=== PATIENT | female | born 1985 | race African-American/Black ===

== ENCOUNTER 2017-10-31 08:24 | Emergency (ER) | payer OTHER ==
[2017-10-31] MEDS ORDERED: DIAZEPAM INJ 10 MG/2 ML DISP.SYRIN IV ONE (08:53)
[2017-10-31] MEDS ORDERED: KETOROLAC TROMETHAMINE 60 MG/2 ML SDV IM ONE (08:53)
[2017-10-31] MEDS ORDERED: DIAZEPAM INJ 10 MG/2 ML DISP.SYRIN IM ONE (08:59)
--- NOTE | 2017-10-31 09:48 | ER Document Report ---
ED General - General Chief Complaint: Back Pain Stated Complaint: HEADACHE Time Seen by Provider: 10/31/17 08:42 Mode of Arrival: Ambulatory Information source: Patient Notes: 32-year-old female presents with complaints of low back pain that is causing her to have headaches. Patient notes injury occurred at work where she struck her low back and since then has been having spasms that radiate up her back to the back of her neck because her head to hurt. Patient denies any fevers chills denies any nausea vomiting or diarrhea denies any loss of bowel or bladder function denies any cauda equina concerns denies any neurological deficits TRAVEL OUTSIDE OF THE [place] IN LAST 30 DAYS: No - HPI Onset: Last week Onset/Duration: Persistent Quality of pain: Achy, Cramping Severity: Mild Pain Level: 1 Associated symptoms: Body/muscle aches, Headache Exacerbated by: Movement Relieved by: Denies Similar symptoms previously: Yes Recently seen / treated by doctor: Yes - Related Data Allergies/Adverse Reactions: latex [Latex] Allergy (Mild, Verified 10/25/17 14:44) swelling, redness, itching metronidazole [From Flagyl] Allergy (Mild, Verified 10/25/17 14:44) swelling, redness, itching Sulfa (Sulfonamide Antibiotics) Allergy (Mild, Verified 10/25/17 14:44) swelling, redness, itching codeine [Codeine] Allergy (Verified 10/25/17 14:44) swelling, redness, itching Metronidazole HCl [From Flagyl] Allergy (Verified 10/25/17 14:44) Past Medical History - Social History Smoking Status: Never Smoker Cigarette use (# per day): No Chew tobacco use (# tins/day): No Smoking Education Provided: No Frequency of alcohol use: None Drug Abuse: None Family History: Arthritis, CVA, DM, Hypertension, Malignancy, Thyroid Disfunction. denies: CAD, COPD, Hyperlipidemia Patient has suicidal ideation: No Patient has homicidal ideation: No Pulmonary Medical History: Reports: Hx Bronchitis Neurological Medical History: Denies: Hx Seizures Endocrine Medical History: Reports: Hx Hyperthyroidism - STATES GOES BACK AN FORTH FROM HYPO/HYPER, Hx Hypothyroidism Renal/ Medical History: Denies: Hx Kidney Stones, Hx Peritoneal Dialysis Psychiatric Medical History: Reports: Hx Bipolar Disorder, Hx Depression Denies: Hx Post Traumatic Stress Disorder, Hx Schizophrenia Infectious Medical History: Denies: Hx HIV Past Surgical History: Reports: Hx Section - x1, Hx Tubal Ligation. Denies: Hx Hysterectomy, Hx Pacemaker - Immunizations Immunizations up to date: Yes Hx Diphtheria, Pertussis, Tetanus Vaccination: Yes Review of Systems - Review of Systems Notes: REVIEW OF SYSTEMS: CONSTITUTIONAL : Denies fever, chills, or sweats. Denies recent illness. EENT: Denies eye, ear, throat, or mouth pain or symptoms. Denies nasal or sinus congestion or discharge. Denies throat, tongue, or mouth swelling or difficulty swallowing. CARDIOVASCULAR: Denies chest pain. Denies palpitations or racing or irregular heart beat. Denies ankle edema. RESPIRATORY: Denies cough, cold, or chest congestion. Denies shortness of breath, difficulty breathing, or wheezing. GASTROINTESTINAL: Denies abdominal pain or distention. Denies nausea, vomiting , or diarrhea. Denies blood in vomitus, stools, or per rectum. Denies black, tarry stools. Denies constipation. GENITOURINARY: Denies difficulty urinating, painful urination, burning, frequency, blood in urine, or discharge. FEMALE GENITOURINARY: Denies vaginal bleeding, heavy or abnormal periods, irregular periods. Denies vaginal discharge or odor. MUSCULOSKELETAL: Admits low back pain. SKIN: Denies rash, lesions or sores. HEMATOLOGIC : Denies easy bruising or bleeding. LYMPHATIC: Denies swollen, enlarged glands. NEUROLOGICAL: Admits to headache PSYCHIATRIC: Denies anxiety or stress. Denies depression, suicidal ideation, or homicidal ideation. ALL OTHER SYSTEMS REVIEWED AND NEGATIVE. PHYSICAL EXAMINATION: GENERAL: Well-appearing, well-nourished and in no acute distress. HEAD: Atraumatic, normocephalic. EYES: Pupils equal round and reactive to light, extraocular movements intact, conjunctiva are normal. ENT: Nares patent, oropharynx clear without exudates. Moist mucous membranes. NECK: Normal range of motion, supple without lymphadenopathy LUNGS: Breath sounds clear to auscultation bilaterally and equal. No wheezes rales or rhonchi. HEART: Regular rate and rhythm without murmurs ABDOMEN: Soft, nontender, nondistended abdomen. No guarding, no rebound. No masses appreciated. Female : deferred Musculoskeletal: Normal range of motion, no pitting or edema. No cyanosis. Generalized tenderness in the L1-L3 region upon palpation and radiates all the way to the cervical region NEUROLOGICAL: Cranial nerves grossly intact. Normal speech, normal gait. Normal sensory, motor exams PSYCH: Normal mood, normal affect. SKIN: Warm, Dry, normal turgor, no rashes or lesions noted. Dictation was performed using [employer] voice recognition software Physical Exam - Vital signs Vitals: Temp Pulse Resp BP Pulse Ox 97.8 F 73 14 102/58 L 100 10/31/17 08:38 10/31/17 08:38 10/31/17 08:38 10/31/17 08:38 10/31/17 08:38 Course - Re-evaluation Re-evalutation: 10/31/17 16:01 Patient's examination is quite benign, has no neurological deficits has no signs of intracranial bleed or hemorrhage. It appears that this is all musculoskeletal in nature and that the spasms are causing tension of her paraspinal cervical region. Patient was therefore given Valium and Toradol and on reevaluation her symptoms have completely resolved and she is in no distress at all. Patient is very happy with her care and wishes to be discharged home No cauda equina concerns noted After performing a Medical Screening Examination, I estimate there is LOW risk for ACUTE GLAUCOMA, TEMPORAL ARTERITIS, MENINGITIS, INCRANIAL HEMORRHAGE, or ISCHEMIC STROKE thus I consider the discharge disposition reasonable. I have reevaluated this patient multiple times and no significant life threatening changes are noted. The patient and I have discussed the diagnosis and risks, and we agree with discharging home with close follow-up with the understanding that symptoms and presentations can change. We also discussed returning to the Emergency Department immediately if new or worsening symptoms occur. We have discussed the symptoms which are most concerning (e.g., changing or worsening symptoms, new numbness or weakness, vomiting, fever) that necessitate immediate return. - Vital Signs Vital signs: Temp Pulse Resp BP Pulse Ox 97.7 F 62 13 102/59 L 100 10/31/17 09:56 10/31/17 09:56 10/31/17 09:56 10/31/17 09:56 10/31/17 09:56 Discharge - Discharge Clinical Impression: Muscle spasm, Neck pain Headache Qualifiers: Headache type: unspecified Headache chronicity pattern: chronic headache Intractability: not intractable Qualified Code(s): R51 - Headache Condition: Stable Disposition: HOME, SELF-CARE Instructions: Low Back Pain ([facility]), Muscle Strain ([facility]) Prescriptions: Ketorolac Tromethamine [Toradol 10 mg Tablet] 10 mg PO Q8HP PRN #9 tablet PRN Reason: Diazepam [Valium 5 mg Tablet] 5 mg PO QIDP PRN #15 tablet PRN Reason: Forms: Parent Work Note, Return to Work Referrals: AURA DIGGS MD [Primary Care Provider] - Follow up tomorrow
[2017-10-31 10:11] VITALS: BP 102/59
== END 2017-10-31 10:05 | disposition home or self-care (01) ==
LOC: ER 08:24
DX: M62.838 Other muscle spasm (principal); M54.2 Cervicalgia; R51 Headache; M54.5 Low back pain; M54.9 Dorsalgia, unspecified
CPT/HCPCS: 99283; 96372; J3360; J1885

== ENCOUNTER 2017-12-29 09:56 | Emergency (ER) | payer BC, OTHER ==
[2017-12-29 10:02] VITALS: BP 125/77
[2017-12-29] MEDS ORDERED: IBUPROFEN 600 MG TABLET PO ONE (10:13)
[2017-12-29] MEDS ORDERED: LORATADINE 10 MG TABLET PO ONE (10:13)
[2017-12-29] MEDS ORDERED: GUAIFENESIN 600 MG TABLET.SA PO ONE (10:13)
[2017-12-29] MEDS ORDERED: PSEUDOEPHEDRINE HCL 30 MG TABLET PO ONE (10:13)
--- NOTE | 2017-12-29 10:19 | ER Document Report ---
ED ENT - General Chief Complaint: Sore Throat Stated Complaint: SORE THROAT, EAR PAIN, HEADACHE Time Seen by Provider: 12/29/17 10:06 Mode of Arrival: Ambulatory Information source: Patient Notes: 32-year-old female presented ED for complaint of severe sore throat 2 weeks with cough congestion ear pain and denies fever. Patient is alert and oriented , pupils equal and react to light, speaking in full sentences, respirations regular and unlabored, patient walks with a even steady gait. TRAVEL OUTSIDE OF THE [place] IN LAST 30 DAYS: No - HPI Patient complains to provider of: Ear problem, Nose problem, Throat problem Onset: Other - 2 weeks Onset/Duration: Persistent - Related Data Allergies/Adverse Reactions: latex [Latex] Allergy (Mild, Verified 12/29/17 09:57) swelling, redness, itching metronidazole [From Flagyl] Allergy (Mild, Verified 12/29/17 09:57) swelling, redness, itching Sulfa (Sulfonamide Antibiotics) Allergy (Mild, Verified 12/29/17 09:57) swelling, redness, itching codeine [Codeine] Allergy (Verified 12/29/17 09:57) swelling, redness, itching Metronidazole HCl [From Flagyl] Allergy (Verified 12/29/17 09:57) Past Medical History - General Information source: Patient - Social History Smoking Status: Never Smoker Cigarette use (# per day): No Chew tobacco use (# tins/day): No Smoking Education Provided: No Frequency of alcohol use: None Drug Abuse: None Family History: Arthritis, CVA, DM, Hypertension, Malignancy, Thyroid Disfunction. denies: CAD, COPD, Hyperlipidemia Patient has suicidal ideation: No Patient has homicidal ideation: No - Medical History Medical History: Other - Anemia - Past Medical History Cardiac Medical History: Reports: None Pulmonary Medical History: Reports: Hx Bronchitis EENT Medical History: Reports: None Neurological Medical History: Reports: None Endocrine Medical History: Reports: Hx Hyperthyroidism - STATES GOES BACK AN FORTH FROM HYPO/HYPER, Hx Hypothyroidism Renal/ Medical History: Reports: None Malignancy Medical History: Reports: None GI Medical History: Reports: None Musculoskeltal Medical History: Reports None Skin Medical History: Reports None Psychiatric Medical History: Reports: Hx Bipolar Disorder, Hx Depression Traumatic Medical History: Reports: None Infectious Medical History: Reports: None Past Surgical History: Reports: Hx Section - 2, Hx Tubal Ligation, Other - Lipoma removed - Immunizations Immunizations up to date: Yes Hx Diphtheria, Pertussis, Tetanus Vaccination: Yes Review of Systems - Review of Systems Constitutional: Recent illness EENT: Ear pain, Nose discharge, Sinus pressure, Sinus discharge, Throat pain Cardiovascular: No symptoms reported Respiratory: Cough Gastrointestinal: No symptoms reported Genitourinary: No symptoms reported Female Genitourinary: No symptoms reported Musculoskeletal: No symptoms reported Skin: No symptoms reported Hematologic/Lymphatic: No symptoms reported Neurological/Psychological: No symptoms reported Physical Exam - Vital signs Vitals: Temp Pulse Resp BP Pulse Ox 99.0 F 88 16 125/77 99 12/29/17 10:01 12/29/17 10:01 12/29/17 10:01 12/29/17 10:01 12/29/17 10:01 Interpretation: Normal - General General appearance: Appears well, Alert - HEENT Head: Normocephalic, Atraumatic Eyes: Normal Pupils: PERRL Ears: Normal External canal: Normal Tympanic membrane: Normal Sinus: Normal Nasal: Purulent discharge, Swelling Mouth/Lips: Normal Mucous membranes: Normal Pharynx: Post nasal drainage. No: Erythema, Exudate, Tonsillar hypertrophy Neck: Normal - Respiratory Respiratory status: No respiratory distress Chest status: Nontender Breath sounds: Nonproductive cough Chest palpation: Normal - Cardiovascular Rhythm: Regular Heart sounds: Normal auscultation Murmur: No - Abdominal Inspection: Normal Distension: No distension Bowel sounds: Normal Tenderness: Nontender Organomegaly: No organomegaly - Back Back: Normal, Nontender - Extremities General upper extremity: Normal inspection, Nontender, Normal color, Normal ROM , Normal temperature General lower extremity: Normal inspection, Nontender, Normal color, Normal ROM , Normal temperature, Normal weight bearing. No: Randy's sign - Neurological Neuro grossly intact: Yes Cognition: Normal Orientation: AAOx4 Brooks Coma Scale Eye Opening: Spontaneous Tyrese Coma Scale Verbal: Oriented Brooks Coma Scale Motor: Obeys Commands Tyrese Coma Scale Total: 15 Speech: Normal Motor strength normal: LUE, RUE, LLE, RLE Sensory: Normal - Psychological Associated symptoms: Normal affect, Normal mood - Skin Skin Temperature: Warm Skin Moisture: Dry Skin Color: Normal Course - Re-evaluation Re-evalutation: 12/29/17 10:42 Patient was seen for sore throat ear pain nasal congestion and cough. Her signs and symptoms were consistent with a upper respiratory infection. Patient was given instructions on upper respiratory infection care and treatment and instructed to follow-up with her primary doctor. After performing a Medical Screening Examination, I estimate there is LOW risk for ACUTE CORONARY SYNDROME , RESPIRATORY FAILURE, SEPSIS OR MENINGITIS, thus I consider the discharge disposition reasonable. I have reevaluated this patient multiple times and no significant life threatening changes are noted. The patient and I have discussed the diagnosis and risks, and we agree with discharging home with close follow-up. We also discussed returning to the Emergency Department immediately if new or worsening symptoms occur. We have discussed the symptoms which are most concerning (e.g., changing or worsening pain, trouble swallowing or breathing, neck stiffness, fever) that necessitate immediate return. - Vital Signs Vital signs: Temp Pulse Resp BP Pulse Ox 99.0 F 88 16 125/77 99 12/29/17 10:03 12/29/17 10:03 12/29/17 10:03 12/29/17 10:03 12/29/17 10:03 Discharge - Discharge Clinical Impression: Viral sore throat URI (upper respiratory infection) Qualifiers: URI type: unspecified URI Qualified Code(s): J06.9 - Acute upper respiratory infection, unspecified Otalgia Qualifiers: Laterality: bilateral Qualified Code(s): H92.03 - Otalgia, bilateral Condition: Stable Disposition: HOME, SELF-CARE Additional Instructions: SORE THROAT: Sore throats may be caused by viruses, bacteria, or fungi. Most are due to a virus, and must get better on their own. Bacterial sore throats, particularly those due to "strep," need treatment with antibiotics. If an antibiotic is prescribed, be sure to take the medication for a full 10 days. Failure to take the antibiotic can result in complications such as rheumatic fever. Sometimes, an injection of antibiotics is given instead of pills or liquid. This single "shot" is equal in effectiveness to the oral medication. To relieve symptoms, take acetaminophen for pain. Sip clear liquids frequently, or eat popsicles or ice chips. Anesthetic sprays or lozenges may help. Make sure the air in the room is not too dry. Avoid using decongestants or antihistamines. Call the doctor if there is no improvement in two days, or if you have difficulty breathing, increasing throat pain, high fever, rash, or frequent vomiting. UPPER RESPIRATORY ILLNESS: You have a viral infection of the respiratory passages -- a "cold." This common infection causes nasal congestion, drainage, and often sore throat and cough. It is highly contagious. The disease usually lasts about 10 to 14 days. There is no "cure" for the viral infection -- it must run its course. If there is a complication, such as bacterial infection in the nose, sinuses, middle ear, or bronchial tubes, antibiotics may be required. The antibiotics won't affect the virus. Drink plenty of fluids. A humidifier may help. An expectorant medication or decongestant may make you more comfortable. Use acetaminophen or ibuprofen for fever or aches. See the doctor if fever persists over two days, if there is any significant worsening of your symptoms, or if you simply fail to improve as expected. DECONGESTANT MEDICATION: A decongestant medicine has been suggested. Often this medicine is combined in the same tablet with an antihistamine or expectorant. This type of medicine is helpful in treating a bad cold or sinus condition, as well as in treatment of the nasal congestion of hay fever. It is not of much benefit for lung infections. Decongestant medicines are related to stimulants. They can cause an increase in blood pressure and heart rate. Persons with heart disease and high blood pressure should not take decongestants without discussing this with the physician. If you develop palpitations, chest pain, headache, or tremors, stop the medicine and consult your physician. COUGH-SUPPRESSANT & EXPECTORANT MEDICATION: You are to use a cough medication as needed for relief of symptoms. This medicine is a combination of an expectorant (to make the mucous thinner and more easily "coughed up") and a cough suppressant (to reduce the frequency of coughing). The cough-suppressant medicine is related to narcotics. You may experience mild nausea and sleepiness. Some patients who are very sensitive to narcotics may have stomach pain from this medicine. Taking the medicine with food reduces these side effects. Do not drive or work with machinery until you know how this medicine affects you. The expectorant should have no side effects. Iodine-containing expectorants (such as organidin) should not be taken by persons with active thyroid disease unless approved by your doctor. Call the doctor if you develop shortness of breath, hives, rash, itching, lightheadedness, or severe nausea and vomiting. USE OF ACETAMINOPHEN (Tylenol): Acetaminophen may be taken for pain relief or fever control. It's much safer than aspirin, offering a wider range of "safe" dosages. It is safe during . Some brand names are Tylenol, Panadol, Datril, Anacin 3, Tempra, and Liquiprin. Acetaminophen can be repeated every four hours. The following are maximum recommended dosages: >89 pounds or adults 650 mg to 900 mg Acetaminophen can be repeated every four hours. Maximum dose not to exceed 4000 mg a day. Ibuprofen Ibuprofen is an excellent, safe drug for pain control. In addition, it has potent antiinflammatory effects which are beneficial, especially in the treatment of injuries, arthritis, or tendonitis. It's best to take ibuprofen with food. Persons with ulcer disease or allergy to aspirin should notify their physician of this before taking ibuprofen. Take the medication exactly as prescribed. Don't take additional doses unless instructed to do so by your doctor. If you develop wheezing, shortness of breath, hives, faintness, stomach pain, vomiting, or dark black stools, return for re-evaluation at once. You were treated with Claritin 10 mg, Sudafed 30 mg, Mucinex 600 mg, and ibuprofen 600 mg in the emergency room. These are all [id number] medications except for the ibuprofen you can take 3 of the [id number] ibuprofen. Another medication that will help you is Flonase you can buy that [id number] use it according to the box instructions. Something to help you with your sore throat is salt and soda solution Salt and soda solution 1 quart of water 1 tablespoon of salt 1 teaspoon of baking soda Mixed 3 ingredients together and boil for 1 minute Placed in a covered quart jar Use 1/2 ounce of cold solution to gargle 3 times a day FOLLOW-UP CARE: If you have been referred to a physician for follow-up care, call the physician s office for an appointment as you were instructed or within the next two days. If you experience worsening or a significant change in your symptoms, notify the physician immediately or return to the Emergency Department at any time for re-evaluation. Referrals: AURA DIGGS MD [Primary Care Provider] - Follow up as needed
== END 2017-12-29 10:28 | disposition home or self-care (01) ==
LOC: ER 09:56
DX: J06.9 Acute upper respiratory infection, unspecified (principal); J02.9 Acute pharyngitis, unspecified; B97.89 Other viral agents as the cause of diseases classified elsewhere; H92.03 Otalgia, bilateral; R05 Cough; R09.81 Nasal congestion
CPT/HCPCS: 99282

== ENCOUNTER 2018-06-28 08:15 | Emergency (ER) | payer BC, MEDICAID ==
--- NOTE | 2018-06-28 09:45 | ER Document Report ---
ED General - General Mode of Arrival: Ambulatory Information source: Patient TRAVEL OUTSIDE OF THE [place] IN LAST 30 DAYS: No <ЕКАТЕРИНА WHARTON - Last Filed: 06/28/18 09:37> <LAVERNE SADLER - Last Filed: 06/28/18 12:04> - General Chief Complaint: Vaginal Bleeding Stated Complaint: VAGINAL BLEEDING Time Seen by Provider: 06/28/18 09:30 Notes: Patient is a 32 year old female presenting to the emergency department complaining of a multitude of symptoms including vaginal bleeding, chest pain, shortness of breath and weakness. Patient's primary concern is her vaginal bleeding. She states she normally has a regular period 2x a month. She states her last cycle lasted for 1 week and 4 days and returned after 1 week and 5 days. She states her period would normally return after 2 weeks. She states the vaginal bleeding is heavy and describes it as coming out as gushing. Patient also complains of skin break outs, a hard lump behind left ear, loosing hair, weight gain without eating, abdominal tenderness, "migraines", foul taste when eating, memory loss, daydreaming and an inability to sleep over the last 2 months. Patient's PCP is Dr. Diggs. (ЕКАТЕРИНА WHARTON) - Related Data Allergies/Adverse Reactions: latex [Latex] Allergy (Mild, Verified 12/29/17 09:57) swelling, redness, itching metronidazole [From Flagyl] Allergy (Mild, Verified 12/29/17 09:57) swelling, redness, itching Sulfa (Sulfonamide Antibiotics) Allergy (Mild, Verified 12/29/17 09:57) swelling, redness, itching codeine [Codeine] Allergy (Verified 12/29/17 09:57) swelling, redness, itching Metronidazole HCl [From Flagyl] Allergy (Verified 12/29/17 09:57) Past Medical History - General Information source: Patient Last Menstrual Period: 06/27/18 - Social History Smoking Status: Former Smoker Chew tobacco use (# tins/day): No Frequency of alcohol use: None Drug Abuse: None Family History: Arthritis, CVA, DM, Hypertension, Malignancy, Thyroid Disfunction Patient has suicidal ideation: No Patient has homicidal ideation: No Pulmonary Medical History: Reports: Hx Bronchitis Endocrine Medical History: Reports: Hx Hyperthyroidism - STATES GOES BACK [place] FORTH FROM HYPO[place]HY[place], Hx Hypothyroidism Psychiatric Medical History: Reports: Hx Bipolar Disorder, Hx Depression Past Surgical History: Reports: Hx Section - 2, Hx Tubal Ligation, Other - Lipoma removed - Immunizations Immunizations up to date: Yes Hx Diphtheria, Pertussis, Tetanus Vaccination: Yes <ЕКАТЕРИНА WHARTON - Last Filed: 06/28/18 09:37> Review of Systems - Review of Systems Constitutional: See HPI, Weakness EENT: No symptoms reported Cardiovascular: See HPI, Chest pain Respiratory: See HPI, Short of breath Gastrointestinal: See HPI Genitourinary: No symptoms reported Female Genitourinary: No symptoms reported Musculoskeletal: See HPI Skin: See HPI Hematologic/Lymphatic: No symptoms reported Neurological/Psychological: No symptoms reported -: Yes All other systems reviewed and negative <ЕКАТЕРИНА WHARTON - Last Filed: 06/28/18 09:37> Physical Exam <ЕКАТЕРИНА WHARTON - Last Filed: 06/28/18 09:37> <LAVERNE SADLER - Last Filed: 06/28/18 12:04> - Vital signs Vitals: Temp Pulse Resp BP Pulse Ox 99.1 F 74 14 108/66 98 06/28/18 08:30 06/28/18 08:30 06/28/18 08:30 06/28/18 08:30 06/28/18 08:30 - Notes Notes: GENERAL: Alert, interacts well. No acute distress. HEAD: Normocephalic, atraumatic. EYES: Pupils equal, round, and reactive to light. Extraocular movements intact. ENT: Oral mucosa moist, tongue midline. NECK: Full range of motion. Supple. Trachea midline. LUNGS: Clear to auscultation bilaterally, no wheezes, rales, or rhonchi. No respiratory distress. HEART: Regular rate and rhythm. No murmurs, gallops, or rubs. ABDOMEN: Soft, non-tender. Non-distended. Bowel sounds present in all 4 quadrants. EXTREMITIES: Moves all 4 extremities spontaneously. NEUROLOGICAL: Alert and oriented x3. Normal speech. PSYCH: Normal affect, normal mood. SKIN: Warm, dry, normal turgor. No rashes or lesions noted. (ЕКАТЕРИНА WHARTON) Course - Laboratory Result Diagrams: 06/28/18 09:47 06/28/18 09:47 <LAVERNE SADLER - Last Filed: 06/28/18 12:04> - Vital Signs Vital signs: Temp Pulse Resp BP Pulse Ox 99.1 F 74 14 108/66 98 06/28/18 08:30 06/28/18 08:30 06/28/18 08:30 06/28/18 08:30 06/28/18 08:30 - Laboratory Laboratory results interpreted by me: 06/28/18 09:21 Urine Blood LARGE H Discharge <ЕКАТЕРИНА WHARTON - Last Filed: 06/28/18 09:37> <LAVERNE SADLER - Last Filed: 06/28/18 12:04> - Discharge Clinical Impression: Dysfunctional uterine bleeding Condition: Stable Disposition: HOME, SELF-CARE Additional Instructions: Dysfunctional Uterine Bleeding You're having an abnormal pattern of bleeding from the uterus. We call this dysfunctional uterine bleeding. It is most often caused by a hormone imbalance. Most often this is temporary and no cause is found. There's no evidence of , tumors, or infection as a cause. Dysfunctional uterine bleeding is especially common at times when the normal menstrual cycle is disturbed -- whether by recent , use of control pills or hormones, or impending menopause. Some medical problems lead to dysfunctional bleeding, such as obesity or being very underweight, stress, or thyroid problems. In many cases, the menstrual cycle will return to normal without any treatment. Where the bleeding is significant, high-dose estrogen will usually stop the bleeding within a day of two. A cycle or two of hormones ( control pills) can help restore the uterus to normal. In some patients where bleeding is severe or resistant to treatment, a D&C is required. A endometrial biopsy (a sample of the inside of the uterus) may be recommended for some older women. This would be done by a gynecology specialist. Treatment for anemia may be required if bleeding is severe. You should rest and avoid intercourse until the bleeding is controlled. Call the doctor or return for re-examination if you feel faint, have increasing pain, or have a major increase in the amount of bleeding. Call [facility] today to schedule appointment within the next week to evaluate your abnormal bleeding. RETURN TO THE EMERGENCY ROOM IF ANY NEW OR WORSENING SYMPTOMS. Referrals: AURA DIGGS MD [Primary Care Provider] - [facility] as needed [facility] [[facility]] - Follow up in 3-5 days (Call today to schedule an appointment.) Scribe Attestation: 06/28/18 10:04 I personally performed the services described in the documentation, reviewed and edited the documentation which was dictated to the scribe in my presence, and it accurately records my words and actions. (LAVERNE SADLER) Scribe Documentation - Scribe Written by Domenico:: Domenico Coffey, 06/28/2018 09:47 acting as scribe for :: Che <ЕКАТЕРИНА WHARTON - Last Filed: 06/28/18 09:37>
[2018-06-28 10:02] LABS: ABSOLUTE EOSINOPHILS # (AUTO) 0.1 10^3/uL (0.0-0.6); ABSOLUTE MONOCYTES (AUTO) 0.3 10^3/uL (0.1-1.4); ABSOLUTE NEUT (AUTO) 3.9 10^3/uL (1.7-8.2); BASOPHILS % (AUTO) 0.8 % (0-2); EOSINOPHILS % (AUTO) 1.1 % (0-6); HEMATOCRIT 37.2 % (36.0-47.0); HEMOGLOBIN 12.7 g/dL (12.0-15.5); LYMPHOCYTES % (AUTO) 18.8 % (13-45); MEAN CORPUSCULAR HEMOGLOBIN 31.4 pg (27.0-33.4); MEAN CORPUSCULAR HGB CONC 34.1 g/dL (32.0-36.0); MEAN CORPUSCULAR VOLUME 92 fl (80-97); MONOCYTES % (AUTO) 5.5 % (3-13); PLATELET COUNT 221 10^3/uL (150-450); RED BLOOD COUNT 4.04 10^6/uL (3.72-5.28); RED CELL DISTRIBUTION WIDTH 13.8 % (11.5-14.0); SEGMENTED NEUTROPHILS % (AUTO) 73.8 % (42-78); TOTAL CELLS COUNTED % (AUTO) 100 %; WHITE BLOOD COUNT 5.3 10^3/uL (4.0-10.5)
[2018-06-28 10:10] LABS: APPEARANCE,URINE CLEAR; BILIRUBIN,URINE NEGATIVE (NEGATIVE); COLOR,URINE YELLOW; GLUCOSE, URINE NEGATIVE (NEGATIVE); KETONES,URINE NEGATIVE (NEGATIVE); LEUKOCYTE ESTERASE,URINE NEGATIVE (NEGATIVE); NITRITE,URINE NEGATIVE (NEGATIVE); PROTEIN,URINE NEGATIVE (NEGATIVE); URIC ACID CRYSTALS,URINE RARE /HPF; URINE SPECIFIC GRAVITY 1.017; UROBILINOGEN,URINE NEGATIVE mg/dL (<2.0)
[2018-06-28 10:32] LABS: ALANINE AMINOTRANSFERASE 16 U/L (9-52); ALBUMIN 4.1 g/dL (3.5-5.0); ALKALINE PHOSPHATASE 64 U/L (38-126); ANION GAP 9 (5-19); ASPARTATE AMINO TRANSFERASE 23 U/L (14-36); BILIRUBIN,DIRECT 0.2 mg/dL (0.0-0.4); BILIRUBIN,TOTAL 0.4 mg/dL (0.2-1.3); BLOOD UREA NITROGEN 11 mg/dL (7-20); CALCIUM 9.6 mg/dL (8.4-10.2); CARBON DIOXIDE 25 mmol/L (22-30); CHLORIDE 107 mmol/L (98-107); GLUCOSE 88 mg/dL (75-110); POTASSIUM 4.4 mmol/L (3.6-5.0); SODIUM 141.2 mmol/L (137-145); TOTAL PROTEIN 7.9 g/dL (6.3-8.2)
[2018-06-28 11:23] LABS: CHLAM PCR NOT DETECTED (NOT DETECT); GON PCR NOT DETECTED (NOT DETECT)
[2018-06-28 12:22] VITALS: BP 107/69
--- NOTE | 2018-06-28 21:24 | EKG REPORT ---
SEVERITY:- NORMAL ECG - SINUS RHYTHM : Confirmed by: Dina Brown MD 28-Jun-2018 21:24:05
== END 2018-06-28 12:22 | disposition home or self-care (01) ==
LOC: EEVIPCON 08:15 → ER 08:15
DX: N93.8 Other specified abnormal uterine and vaginal bleeding (principal); R07.9 Chest pain, unspecified; R06.02 Shortness of breath; R53.1 Weakness; R22.0 Localized swelling, mass and lump, head; R63.5 Abnormal weight gain; R10.819 Abdominal tenderness, unspecified site; L65.9 Nonscarring hair loss, unspecified; R43.9 Unspecified disturbances of smell and taste; R41.3 Other amnesia; Z87.891 Personal history of nicotine dependence; Z88.5 Allergy status to narcotic agent; Z88.1 Allergy status to other antibiotic agents; Z91.040 Latex allergy status; Z88.2 Allergy status to sulfonamides
CPT/HCPCS: 36415; 80053; 81001; 81025; 85025; 87491; 87591; 93005; 93010; 99284

== ENCOUNTER → 2019-03-27 | Day surgery (SDC) | payer OTHER ==
[~2019-03-27] MED LIST: BUPIVACAINE HCL 0.5 % INJ/PF 30 ML SDV ONE; LIDOCAINE 2% INJ (20 MG/ML) 20 ML MDV ONE; METHYLPREDNISOLONE ACETATE INJ 40 MG/1 ML ML ONE
--- NOTE | 2019-03-27 10:17 | Operative Report ---
PREOPERATIVE DIAGNOSIS: Lumbar Spondylosis POSTOPERATIVE DIAGNOSIS: Lumbar Spondylosis PROCEDURE: Radiofrequency Ablation of medial branches - LT L3 L4 L5 DATE OF PROCEDURE: 03/27/2019 ANESTHESIA: Local COMPLICATIONS: None CONSENT: A full description of the procedure was provided including benefits as well as possible complications. All questions were answered and informed consent was given and signed. ASA guidelines for fasting were verified prior to sedation. PROCEDURE IN DETAIL The patient was brought into the fluoroscopy suite and positioned into the prone position on the fluoroscopy table and allowed to adjust to a position of comfort. A grounding pad was placed on the right thigh. The lumbar region was widely prepped with a chloraprep solution, allowed to air dry and draped in standard sterile surgical fashion. Local anesthesia was provided by 1 mL of lidocaine 1% delivered with a 25 g needle. A 17g 100mm radiofrequency introducer needle was placed to the planned anatomic targets guided with intermittent fluoroscopy with a perpendicular approach to terminally place at the junction of the superior articular process and the transverse process of the left L4 L5 and the base of the sacral ala on the left for the L5 medial branch nerve. The stylets were removed and radiofrequency probes with a 4mm active tip were then inserted. Needle tip position of the probes was verified in the AP, oblique, and lateral views. At each site, the medial branch nerve was stimulated at 2 Hz to a maximum 1-2 volts determined to finalize safe needle and electrode placement. The patient was awake and responsive during this portion of the procedure. Each target was anesthetized with 1-2 mL of 2 % lidocaine for anesthesia for lesioning and then each target was lesioned at 80 degrees Celsius for 2 minutes and 30 seconds. Tissue impedences were noted to be between 250 and 500 Ohms. Solution of Sensorcaine and Depo-Medrol was injected at each site. Electrodes and needles were then removed and bandages placed over the needle placement sites, the patient then returned to the supine position on a stretcher and transported to the recovery room without hemodynamic, neurologic, or allergic reactions. Fluoroscopic images were printed for hard copy recording and digitally archived. POST PROCEDURE EVALUATION: The patient was comfortable in the recovery room. The patient is aware that pain may worsen before remitting and 4 6 weeks may be required prior to the onset of pain relief. IMPRESSION: 1. Technically successful left L3 L4 L5 medial branch radiofrequency neurotomy for denervation on the left without complication. 2. RTC in 6 weeks. 3. Estimated Blood Loss: 2 cc 4. Fluoroscopy time: See nursing record for seconds
== END ==
LOC: RAD 09:31
PROVIDERS: ATTEND Student in an Organized Health Care Education/Training Program
DX: M47.817 Spondylosis without myelopathy or radiculopathy, lumbosacral region (principal)
CPT/HCPCS: 64636; 64635; J3490 ×2; J1030

== ENCOUNTER → 2019-05-16 | Outpatient (CLI) | payer MEDICAID ==
[2019-05-16 12:06] LABS: HEMATOCRIT 39.2 % (36.0-47.0); HEMOGLOBIN 13.7 g/dL (12.0-15.5); MEAN CORPUSCULAR HEMOGLOBIN 32.4 pg (27.0-33.4); MEAN CORPUSCULAR VOLUME 93 fl (80-97); PLATELET COUNT 263 10^3/uL (150-450); RED BLOOD COUNT 4.23 10^6/uL (3.72-5.28); RED CELL DISTRIBUTION WIDTH 13.9 % (11.5-14.0); WHITE BLOOD COUNT 5.9 10^3/uL (4.0-10.5)
[2019-05-16 12:35] LABS: ALBUMIN 4.4 g/dL (3.5-5.0); ALKALINE PHOSPHATASE 62 U/L (38-126); ANION GAP 12 (5-19); ASPARTATE AMINO TRANSFERASE 28 U/L (14-36); BILIRUBIN,DIRECT 0.2 mg/dL (0.0-0.4); BILIRUBIN,TOTAL 0.5 mg/dL (0.2-1.3); BLOOD UREA NITROGEN 8 mg/dL (7-20); CARBON DIOXIDE 23 mmol/L (22-30); CHLORIDE 106 mmol/L (98-107); GLUCOSE 75 mg/dL (75-110); IRON 150.8 ug/dL (37-170); POTASSIUM 4.3 mmol/L (3.6-5.0); TOTAL PROTEIN 8.2 g/dL (6.3-8.2)
[2019-05-16 12:48] LABS: FREE T3 3.3 pg/mL (2.77-5.27); FREE T4 (FREE THYROXINE) 1.36 ng/dL (0.78-2.19)
[2019-05-16 13:01] LABS: THYROID STIMULATING HORMONE 0.51 uIU/mL (0.47-4.68)
[2019-05-16 13:50] LABS: FOLATE > 20.00 ng/mL (>2.76)
[2019-05-17 10:55] LABS: ANTINUCLEAR ANTIBODIES Negative (Negative)
== END ==
LOC: OD 11:09
PROVIDERS: ATTEND Nurse Practitioner Family
DX: G43.909 Migraine, unspecified, not intractable, without status migrainosus (principal)
CPT/HCPCS: 36415; 80053; 82306; 82607; 82728; 82746; 83036; 83540; 84439; 84443; 84481; 85027; 86038

== ENCOUNTER → 2020-07-30 | Outpatient (CLI) | payer MEDICAID ==
[2020-07-30 18:38] LABS: BLOOD UREA NITROGEN 14 mg/dL (7-20)
== END ==
LOC: OD 16:39
PROVIDERS: ATTEND Nurse Practitioner Family
DX: Z51.81 Encounter for therapeutic drug level monitoring (principal); Z79.1 Long term (current) use of non-steroidal anti-inflammatories (NSAID)
CPT/HCPCS: 36415; 82565; 84520